=== PATIENT | female | born 1940 | race Asian ===

== ENCOUNTER → 2016-09-30 | Outpatient (CLI) | payer MEDICARE, OTHER ==
--- NOTE | ~2016-09-30 | CT102 ---
[facility] A Service of [facility] RADIOLOGY TEXT RESULTS PATIENT: JONE ZHU LOCATION: [facility] : 44 UNIT #: [id number] AGE: [address]: Ward Hurd MD SEX: F ORDER DR: [id number] [facility] [address] [place], [place] [address] [id number] MR#: [id number] Acc #: [id number] NAME: JONE ZHU : 1940 SEX: F STUDY DATE/TIME: 09/30/2016 9:01 UNIT: [facility] ROOM: STUDY DESCRIPTION: CT Orbits W Contrast Attending Physician: Ward Hurd M.D. Referring Physician: aWrd Hurd M.D. Ordering Physician: Ward Hurd M.D. Primary Care Physician: Lola Eli M.D. MEDICAL IMAGING REPORT This report is preliminary unless electronic signature is present EXAM Orbit CT with contrast, 09/30/2016 CLINICAL HISTORY Right eye chemosis, swelling and drainage. Ptosis, orbital fullness. PROCEDURE Axial contrast-enhanced orbit CT with multiplanar reformats. This CT exam was performed with one or more of the following radiation dose reduction techniques: automatic exposure control, adjustment of mA and/or kV according to patient size, and iterative reconstruction. FINDINGS The orbital bony margins are normal. The adjacent intracranial vessels and cavernous sinuses appear normal. Allowing for lens replacement the globes, extraocular muscles and lacrimal glands and intra and extraconal fat are normal. There is no mass or inflammatory change. IMPRESSION Normal orbit CT with contrast. No mass or inflammatory change, abnormal enhancement or other acute abnormality. The supra and parasellar regions and cavernous sinuses appear normal as well. Dictated by... Raghavendra Mccullough M.D. THIS IS AN ELECTRONICALLY VERIFIED REPORT Raghavendra Mccullough M.D. at 10/04/2016 3:59 PM CHRIS/jame [facility] A Service of [facility] RADIOLOGY TEXT RESULTS PATIENT: JONE ZHU LOCATION: [facility] : 44 UNIT #: [id number] AGE: [address]: Ward Hurd MD SEX: F ORDER DR: TD: 10/02/2016 22:16 JOB #: [id number] MEDICAL IMAGING REPORT Page 1 of 1 COPY
[2016-09-30 08:46] LABS: POC - CREATININE 0.63 mg/dL (0.44-1.03); POC - GFR >60.0 mL/min (>60)
== END | disposition home or self-care (01) ==
LOC: CCAT 08:03
PROVIDERS: Ophthalmology
DX: H02.843 Edema of right eye, unspecified eyelid (principal); H05.229 Edema of unspecified orbit
CPT/HCPCS: 70481; 82565; Q9967